=== PATIENT | male | born 1955 | race Caucasian/White ===

== ENCOUNTER 2022-08-26 19:08 | Emergency (ER) | payer MEDICARE ==
[~2022-08-26] VITALS: Ht 182.9 cm; Wt 113.4 kg
[2022-08-26 19:46] VITALS: BP 159/85
== END 2022-08-26 20:31 | disposition left against medical advice (07) ==
LOC: EDBD 19:08 → EDH 19:08
DX: M54.50 Low back pain, unspecified (principal); Z53.21 Procedure and treatment not carried out due to patient leaving prior to being seen by health care provider